=== PATIENT | male | born 1960 | race Hispanic/Latino ===

== ENCOUNTER → 2024-04-02 12:34 | Outpatient (CLI) | payer MEDICAID, SELFPAY ==
--- NOTE | 2024-04-02 13:04 | DIAB.MNT ---
Initial Diabetes Medical Nutrition Therapy Assessment Name: Adan Zambrano Date: 04/02/24 Time: 108-2p Dx: Type II Diabetes Sánchez presents for initial Dm visit. Currently in cardiac rehab. Has h/o diabetes education per report. States he is unsure why his referral came to . Per referral it is for telehealth visits. Stopped insulin x 1 month due to hypoglycemia of 60-70mg/dl FBG. Was also drowsy with hypoglycemia, 60mg/dl. Wants to get back to work. 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 Left foot prostetic x 3 years. 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 DM hx >5 years, maybe close to 10. FH of DM with both parents. Reports recent lab work on . Reports hgA1c was good. Not sure what result was. Has endo at [facility]. Plans to see him this month. Reports h/o DE last Nov. Presented to ED with SOB. Ended up needing surgical intervention. Diet Recall: 8a: cereal x 1c OR oatmeal sweetened x 1pkt OR eggs, avocado and meat sn: nothing or fruit or regular 1c jello 5p: broccoli, red meat or chx or no pro, 1c rice, +/- avocado 6p: fruit 26oz water, 1c tea, 0-0.5c coffee, 6-12oz pineapple juice, sweet tea 24oz per week Careful about fluids per report due to retention and SOB. Anthropometrics: Ht: 67 Wt: 198# reported today Physical Activity: Cardio rehab graduation Monday, but has been going three times per week. Plans to go to gym thereafter. Home exercises: push ups, ab exercises, stretching. Self-Monitoring Blood Glucose: Yesterday FBG 130mg/dl. Usually 110-140mg/dl. Also checks if feeling unwell. use to be in the 200-300s in the past. Diabetes Medications: 1000mg Metformin BID 25mg Jardiance Pertinent Labs: HgA1c: not available. Req labs however no recent A1c available from PCP. Past Medical History: Left BKA, Right toes amp, Bilateral retinopathy, HLD. Nutrition Rx: Plate Method Nutrition Diagnosis: - Excessive CHO intake r/t nutrition knowledge deficit aeb diet recall and pt report Intervention: This participant was very receptive. Provided appropriate educational handouts. Discussed the following topics: Completed intake assessment. Discussed barriers to care. Plate Method, impact of macronutrients on blood sugar, meal timing, pairing macronutrients and spreading out carbohydrates for better blood glucose management Recommended servings for carbohydrates at meals and snacks Heart health nutrition Impact of juice on BG SMBG: BG checks FBG and postprandial and rationale Created SMART goals for patient self-care and success. Goals: Move fruit in evening to 7-8p Check a few pc readings Follow-up: [facility] follow-up in 2-3 weeks Hortencia Rendon RDN, [facility] Certified Diabetes Care and County Health Officer P: [phone] Thank you for this referral
== END ==
LOC: DIET 12:38
PROVIDERS: PCP Family Medicine Sports Medicine; Referring Provider Family Medicine Sports Medicine
DX: E11.9 Type 2 diabetes mellitus without complications (principal); Z79.84 Long term (current) use of oral hypoglycemic drugs; Z71.3 Dietary counseling and surveillance
CPT/HCPCS: 97802

== ENCOUNTER → 2024-04-16 15:10 | Outpatient (CLI) | payer MEDICARE, MEDICAID, SELFPAY ==
--- NOTE | 2024-05-09 13:17 | DIAB.MNTFU ---
Follow-up Diabetes Medical Nutrition Therapy Assessment Name: Adan Zambrano Date: 04/16/24 Time: 335-430p Dx: Type II Diabetes Sánchez presents for Dm follow-up. States he notices if he has fruit at night his FBG tends to be >130mg/dl. Has been juicing fruits. Seemingly high CHO intake with fruit and juicing. Has been having fruit 1-2 hours after dinner. Has been doing some pc BG checks. Endorses adding eating occurrence more frequently mid day, ie avocado or pear Today we called PCP office for las few HgA1c results. Has Nov results, but had not completed December orders per clinic. Reports h/o SOB with fluid retention, better recently. Sleep has been 11-12 hours but wakes frequently. Reports h/o very well managed BG with ?strict eating?. Anthropometrics: Ht: 67 Wt: 198# reported today Physical Activity: Gym 2-3x for 45 min starting last week Self-Monitoring Blood Glucose: February FBG prior to table below most FBG were 108-145mg/dl. Recent FBG on the higher end of his usual per report. Postprandial this week mostly <180mg/dl. Date Pre Post Pre Post Pre Post notes 04/08 178 04/11 129 04/12 130 15 172 04/14 173 176 04/15 145 192 Cherries 04/16 161 Diabetes Medications: 1000mg Metformin BID 25mg Jardiance Pertinent Labs: hgA1c: per PCP office 7.0% 12/11/2023 6.9% 12/19/2023 Past Medical History: Left BKA, Right toes amp, Bilateral retinopathy, HLD. Nutrition Rx: Plate Method Nutrition Diagnosis: - Excessive CHO intake r/t nutrition knowledge deficit aeb diet recall and pt report - improved/in progress Intervention: This participant was very receptive. Provided appropriate educational handouts. Discussed the following topics: Blood sugar review and trends. Impact of food intake and state of Dm on results. Smoothies vs juicing and fiber impact on bg Carb portion review Impact of sleep hygiene on BG Physical activity plan and progress Created SMART goals for patient self-care and success. Goals: Move fruit in evening to 7-8p- met Check a few pc readings- met Choose blending over juicing- new Aim for 2c fruit or less for HS snacks - new Follow-up: [facility] follow-up in 3-4 weeks Hortencia Rendon RDN, [facility] Certified Diabetes Care and Motor Builder Assembler P: [phone] Thank you for this referral
== END ==
PROVIDERS: PCP Family Medicine Sports Medicine; Referring Provider Family Medicine Sports Medicine
DX: E11.9 Type 2 diabetes mellitus without complications (principal); Z71.3 Dietary counseling and surveillance; Z79.84 Long term (current) use of oral hypoglycemic drugs
CPT/HCPCS: 97803

== ENCOUNTER → 2024-06-21 10:45 | Outpatient (CLI) | payer MEDICARE, MEDICAID, SELFPAY ==
--- NOTE | 2024-06-21 10:49 | DIAB.MNTFU ---
Follow-up Diabetes Medical Nutrition Therapy Assessment Name: Adan Zambrano Date: 06/21/24 Time: 11a-1140a Dx: Type II Diabetes Sánchez presents for Dm follow-up. Had provider visit recently for new prosthetics. 1-2 weeks should have new prosthetic. Reports adult children often providing nutrition input. Seem supportive. Reports no discussion with PCP about DM in recent months. Called PCP office to determine recent hgA1c and appts. No PCP scheduled but has 10/17 3p endo. Trying to eat more veggies and fish. Reducing portions. Measured cereal, 1c (cheerios). Feels he over does it on rice portions, couple cups in a sitting when very hungry. Sometimes goes long periods of time without eating and will result in over consumption. Diet recall: 730-8a: 1c cheerios with milk OR eggs and avocado sn: 1c fruit- cherries or grapes sn: nothing or plum or pear 6-7p: burger, potato, broccoli prepped for the week Beverages; water, tea Anthropometrics: Ht: 67 Wt: 198# reported last visit Physical Activity: Gym 3x per week + home resistance exercises Self-Monitoring Blood Glucose: Reports FBG of 130-150mg/dl and random later readings of 170-180mg/dl. No meter today. Diabetes Medications: 1000mg Metformin BID 25mg Jardiance Pertinent Labs: hgA1c: per PCP office 7.0% 12/11/2023 6.9% 12/19/2023 7.1% 04/2024 Past Medical History: Left BKA, Right toes amp, Bilateral retinopathy, HLD. Nutrition Rx: Plate Method Nutrition Diagnosis: - Excessive CHO intake r/t long periods of time fasting aeb diet recall and pt report - inew - Inconsistent protein intake r/t no pairing during mid day aeb diet recall- new Intervention: This participant was very receptive. Provided appropriate educational handouts. Discussed the following topics: Blood sugar review and trends. Macronutrient pairing Family input and support of Dm care hgA1c results and goal for <7% Carb portion review Meal timing Physical activity plan and progress Created SMART goals for patient self-care and success. Goals: Choose blending over juicing- improved Aim for 2c fruit or less for HS snacks - met Add protein to fruit- new Try to eat q 3-4 hours- new Keep rice to 1c- new Bring BG next visit- new Follow-up: [facility] follow-up in 2-3 weeks Hortencia Rendon RDN, [facility] Certified Diabetes Care and Assembler [employer] P: [phone] Thank you for this referral
== END ==
PROVIDERS: PCP Family Medicine Sports Medicine; Referring Provider Family Medicine Sports Medicine
DX: E11.9 Type 2 diabetes mellitus without complications (principal); Z79.84 Long term (current) use of oral hypoglycemic drugs; Z71.3 Dietary counseling and surveillance
CPT/HCPCS: 97803

== ENCOUNTER → 2024-07-11 10:45 | Outpatient (CLI) | payer MEDICARE, MEDICAID, SELFPAY ==
--- NOTE | 2024-08-06 12:07 | DIAB.MNTFU ---
Follow-up Diabetes Medical Nutrition Therapy Assessment Name: Adan Zambrano Date: 07/11/24 Time: 1050-1130a Dx: Type II Diabetes Sánchez presents for Dm follow-up. Endorses poor sleep recently r/t stressing and thinking about work. Is in a vocation program. States he will sometimes toss and turn all night, and feels this may impact BG. Diet recall continues to be mostly fruit during the day, some higher portions at night. Limited protein intake. Veggies 1x per day. States he notices increased FBG >150mg/dl if eating late at 6-7p. Attempting to not eat as late. Potentially open to CGM sample. Would be nice to see his BG trends and if interested, could consider OTC options. Anthropometrics: Ht: 67 Wt: 198# reported previously Physical Activity: Gym 3x per week + home resistance exercises Self-Monitoring Blood Glucose: Reports FBG of 130-150mg/dl and random later readings of 170-180mg/dl. No meter today. States he felt off or weird once and check BG after 20oz watermelon juice with BG of 220mg/dl. Diabetes Medications: 1000mg Metformin BID 25mg Jardiance Pertinent Labs: hgA1c: per PCP office 7.0% 12/11/2023 6.9% 12/19/2023 7.1% 04/2024 Past Medical History: Left BKA, Right toes amp, Bilateral retinopathy, HLD. Nutrition Rx: Plate Method Nutrition Diagnosis: - Excessive CHO intake r/t long periods of time fasting aeb diet recall and pt report - continued - Inconsistent protein intake r/t no pairing during mid day aeb diet recall- continued Intervention: This participant was very receptive. Provided appropriate educational handouts. Discussed the following topics: Blood sugar trends. Sleep and stress impacts on BG Strategies for reducing stress: relaxation techniques for sleep Macronutrient pairing Physical activity plan and progress CGM pros/cons, how they work, access Created SMART goals for patient self-care and success. Goals: Add protein to fruit- not met Try to eat q 3-4 hours- not met Keep rice to 1c- improved Bring BG next visit- not met Gym 3-4x per week- new Try relaxation exercises when cannot sleep- new Add protein to fruit- new Follow-up: [facility] follow-up in 3-4 weeks Hortencia Rendon RDN, [facility] Certified Diabetes Care and Sales Representative [employer] P: [phone] Thank you for this referral
== END ==
LOC: DIET 10:45
PROVIDERS: PCP Family Medicine Sports Medicine; Referring Provider Family Medicine Sports Medicine
DX: E11.9 Type 2 diabetes mellitus without complications (principal); Z71.3 Dietary counseling and surveillance; Z79.84 Long term (current) use of oral hypoglycemic drugs
CPT/HCPCS: 97803

== ENCOUNTER → 2024-08-06 10:49 | Outpatient (CLI) | payer MEDICARE, MEDICAID, SELFPAY ==
--- NOTE | 2024-08-27 17:17 | DIAB.FU ---
Follow-up Diabetes Education Assessment Name: Adan Zambrano Date: 08/06/24 Time: 1110-1670a Dx: Type II Diabetes Sánchez presents for Dm follow-up. Seems hesitant to try CGM today, though after discussion, is open to trial next visit. States he has noticed increased fatigue/feeling sleepy after elevated BG. Today he reported his mother's h/o DM was pretty severe. States he would like to keep his managed. Fruit continues to be his favorite snack, sometimes replacing meals. Has tried adding some protein. Notices when he has fruit before bed, FBG often >140mg/dl. Without fruit, FBG in the 130s. Reports sleeping better through the night recently. Did not try relaxation techniques from last visit. Does not have PCP visit scheduled. Predicted to be due to hgA1c. Anthropometrics: Ht: 67 Wt: 198# reported previously Physical Activity: Gym 3x per week + home resistance exercises Self-Monitoring Blood Glucose: Checking FB, 157, 139, 161, 142, 177 mg/dl. Postprandial readings in June: 179, 200, 168, 178. Some postprandial in range, but FBG always elevated. Diabetes Medications: 1000mg Metformin BID 25mg Jardiance Pertinent Labs: hgA1c: per PCP office 7.0% 12/11/2023 6.9% 12/19/2023 7.1% 04/2024 Past Medical History: Left BKA, Right toes amp, Bilateral retinopathy, HLD. Intervention: This participant was very receptive. Provided appropriate educational handouts. Discussed the following topics: Blood sugar results and goals Motivation to manage hyperglycemia Sleep and stress impacts on BG Symptoms of hyperglycemia CGM pros/cons, how they work, access Created SMART goals for patient self-care and success. Goals: Gym 3-4x per week- met Try relaxation exercises when cannot sleep- not met Add protein to fruit- met Call to schedule PCP- new Get new labs- new Consider CGM trial to get more data- new Aim for less fruit in evening- new Follow-up: [facility] follow-up in 4 weeks Hortencia Rendon RDN, [facility] Certified Diabetes Care and Electro Mechanic P: [phone] Thank you for this referral
== END ==
PROVIDERS: PCP Family Medicine Sports Medicine; Referring Provider Family Medicine Sports Medicine
DX: E11.9 Type 2 diabetes mellitus without complications (principal); Z71.3 Dietary counseling and surveillance; Z79.84 Long term (current) use of oral hypoglycemic drugs
CPT/HCPCS: G0108